=== PATIENT | female | born 1970 | race Caucasian/White ===

== ENCOUNTER → 2016-05-22 | Outpatient (CLI) | payer OTHER ==
[2016-05-22 11:01] LABS: Basophils % (A) 1 %; CH 29.8; CHCM 33.5; Eosinophils # (A) 0.1 k/uL (0-0.7); Eosinophils % (A) 3 %; HCT 41.5 % (34.0-46.0); HDW 2.62; HGB 13.5 gm/dL (11.4-16.0); Luc % (Auto) 2; Lymphocytes # (A) 1.4 k/uL (1.0-4.8); Lymphocytes % (A) 31 %; MCH 28.9 pg (25.0-35.0); MCHC 32.5 g/dL (31.0-37.0); Monocytes # (A) 0.3 k/uL (0-1.0); Monocytes % (A) 7 %; Neutrophils # (A) 2.6 k/uL (1.3-7.7); Neutrophils % (A) 57 %; RBC 4.66 m/uL (3.80-5.40); RDW 13.4 % (11.5-15.5); WBC 4.4 k/uL (3.8-10.6); WBC (Perox) 4.47
[2016-05-22 11:08] LABS: Anion Gap 11 mmol/L; Blood Urea Nitrogen 10 mg/dL (7-17); Calcium 9.2 mg/dL (8.4-10.2); Carbon Dioxide 26 mmol/L (22-30); Chloride 105 mmol/L (98-107); Glucose 100 mg/dL (74-99); Non-African American GFR(MDRD) >60 (>60 ml/min/1.73 sqM); Potassium 4.1 mmol/L (3.5-5.1); Sodium 142 mmol/L (137-145)
== END | disposition home or self-care (01) ==
LOC: LABWHC1 10:10
PROVIDERS: ATTEND Obstetrics & Gynecology
DX: Z01.812 Encounter for preprocedural laboratory examination (principal)
CPT/HCPCS: 36415; 80048; 85025

== ENCOUNTER 2016-05-28 06:03 | Observation (INO) | payer OTHER ==
[~2016-05-28 06:03] MED LIST: DEXAMETHASONE SOD PHOSPHATE 10 MG/ML 1 ML VIAL IV ONE; MIDAZOLAM 2 MG/2 ML VIAL IV PRN; ONDANSETRON 4 MG/2 ML VIAL IVP ONE; SCOPOLAMINE 1.5MG/72HR PATCH TRANSDERM ONE; ceFAZolin 2 GM in SODIUM CHLORIDE 0.9% 100 ML IVPB ONE
[2016-05-28] MEDS ORDERED: LIDOCAINE 1% 20 ML VIAL (10MG/ML) FOR IV START INTRADERMA ONE ×2 (06:45→06:49)
[2016-05-28] MEDS: LACTATED RINGERS 1,000 ML IV SCH ×4 (06:47→12:22)
[2016-05-28] MEDS ORDERED: METOCLOPRAMIDE 5 MG/ML 2 ML VIAL IVP ONE (07:00)
[2016-05-28] MEDS ORDERED: MIDAZOLAM 2 MG/2 ML VIAL IVP ONE (07:34)
--- NOTE | 2016-05-28 07:44 | P.HPOB ---
History of Present Illness H&P Date: 05/28/16 Chief Complaint: Dysfunctional uterine bleeding Elaine is a 45-year-old female who has dysfunctional uterine bleeding. She bleeds basally 7 days each cycle is getting heavier and she underwent a ablation procedure a few years ago and has not had resolution of symptoms. In fact symptoms are significantly worse her last month or so. It is so bad that she is now unable to function as well as she would like and she is requesting hysterectomy for rule out resolution of symptoms. Risks and benefits/ alternatives to robotic-assisted laparoscopic hysterectomy reviewed with the patient in detail and did include but were not limited to damage to bladder, bowel, vascular injuries, nerve injuries, ureteral injuries, bleeding and infection. All questions were answered for her prior to proceeding to the operating room. Past Medical History Past Medical History: No Reported History History of Any Multi-Drug Resistant Organisms: None Reported Past Surgical History: Tubal Ligation Additional Past Surgical History / Comment(s): D & C. BOTH FEET PLANTAR FASCITIS/SPURS. LEFT EYE (LASY EYE). LAPROSCOPY (R/O ENDOMETROSIS). Past Anesthesia/Blood Transfusion Reactions: Motion Sickness, Postoperative Nausea & Vomiting (PONV) Past Psychological History: Anxiety, Depression Additional Psychological History / Comment(s): GENERALIZED ANXIETY DISORDER. Smoking Status: Never smoker Past Alcohol Use History: Rare Past Drug Use History: None Reported - Past Family History Sister(s) Family Medical History: Deep Vein Thrombosis (DVT) Medications and Allergies Allergies Allergy/AdvReac Type Severity Reaction Status Date / Time No Known Allergies Allergy Verified 05/22/16 14:13 Exam Osteopathic Statement: *. No significant issues noted on an osteopathic structural exam other than those noted in the History and Physical/Consult. - Vital Signs Vital signs: Vital Signs Temp Pulse Resp BP Pulse Ox 05/28/16 06:28 98.1 F 74 18 170/76 96 - OBG Physical Exam Breast: both: normal (no masses) Abdomen: bowel sounds normal, no diffuse tenderness, no bruit present, no guarding noted, no hepatomegaly, no splenomegaly, no mass Vulva: both: normal Vagina: normal moisture, no discharge Cervix: no lesion, no discharge Uterus: normal size, normal contour Adnexa: both: normal Anus/Rectum: normal perianal skin, no rectal mass, no hemorrhoids, heme negative
[2016-05-28] MEDS ORDERED: KETOROLAC 30 MG/ML 1 ML VIAL ONE (07:51)
[2016-05-28] MEDS ORDERED: LIDOCAINE 1% INJ 10MG/ML (20 ML MDV) ONE (07:51)
[2016-05-28] MEDS ORDERED: fentaNYL (PF) 50 MCG/ML 2 ML AMP ONE (07:51)
[2016-05-28] MEDS ORDERED: SUCCINYLCHOLINE CHLORIDE 100 MG/5 ML SYR IV ONE (07:51)
[2016-05-28] MEDS ORDERED: GLYCOPYRROLATE 0.2 MG/ML 2 ML VIAL ONE (07:51)
[2016-05-28] MEDS ORDERED: ROCURONIUM BROMIDE 10 MG/ML 10 ML VIAL IV ONE (07:51)
[2016-05-28] MEDS ORDERED: PROPOFOL 10 MG/ML 20 ML VIAL IV ONE (07:51)
[2016-05-28] MEDS ORDERED: NEOSTIGMINE 1 MG/ML 10 ML VIAL ONE (07:51)
[2016-05-28] MEDS ORDERED: BUPIVACAINE (PF) 0.25% 30 ML VIAL SQ ONE (08:28)
[2016-05-28] MEDS ORDERED: ONDANSETRON 4 MG/2 ML VIAL IVP PRN (09:10)
[2016-05-28] MEDS ORDERED: SIMETHICONE 80 MG CHEWABLE PO PRN (09:10)
[2016-05-28] MEDS ORDERED: Acetaminophen-Codeine 300-30mg TAB PO PRN ×2 (09:10)
[2016-05-28] MEDS ORDERED: diphenhydrAMINE 50 MG/ML 1 ML VIAL IVP PRN (09:10)
--- NOTE | 2016-05-28 09:18 | P.OP ---
Date of Procedure: 05/28/16 Preoperative Diagnosis: : Dysfunctional uterine bleeding and Failed ablation Postoperative Diagnosis: Same with left ovarian hemorrhagic cyst Procedure(s) Performed: Robotic-assisted laparoscopic hysterectomy with left ovarian cystectomy Anesthesia: SIGIFREDO Surgeon: Adam Albrecht Functional Analyst #1: Marita Tapia Estimated Blood Loss (ml): 15 IV fluids (ml): 500 Urine output (ml): 150 Pathology: other (Uterus and cervix) Condition: stable Disposition: floor Operative Findings: Normal uterus and tubes. Left hemorrhagic cyst which was removed. Incidental finding of an abdominal wall hernia above the camera incision Description of Procedure: Patient was taken to the operating suite where a general anesthetic was found to be adequate. She was prepped and draped in the normal sterile fashion and placed in dorsal lithotomy position. Initially a weighted speculum was inserted in the vagina into lip cervix with was identified and grasped with a single-tooth tenaculum. Cervix was then dilated and the uterus was sounded to 8 cm. Cup size was then measured to 3.5 cm and a Giselle manipulator was inserted without difficulty with sutures placed at 3 and 9 for assistance in removal. Tenaculum and speculum was were then removed and a El catheter was placed. Gloves were then changed and attention was turned to the abdominal portion of the procedure where by approximately 2 mL of quarter percent Marcaine were injected periumbilically. Through this injected anesthetic a 5 mm skin incision was made and through this incision under direct visualization with an optical trocar and sleeve the camera was inserted. Once this was accomplished gas was allowed to fully insufflate the abdomen and patient was placed in steep Trendelenburg position. 2 lateral ports were then placed approximately 10 cm from the umbilicus and a fourth port and sleeve was inserted through 1 cm incision between the left lateral and the medial port. Camera port was then exchanged for a robotic port and the robot was brought in and docked. Once fully docked I did break scrub and go to the console using [place] grasper and a Metzenbaum scissor initially we did visualize a hernia above the bellybutton incision this is an incidental finding. Next we noted a proxy 3 cm left hemorrhagic cyst which was excised without difficulty. Once this was accomplished uterus was elevated tipped to the right-hand side first the left utero-ovarian ligament was identified cauterized and cut then the fallopian tube was cauterized and cut broad ligament tissues to the Remley were then cauterized and cut roundly was then cauterized and cut and sterilization of left sided vast suture was then performed. Once accomplished left vasculature was cauterized bladder flap was elevated undermined with Metzenbaum and incised with scissors across face of the uterus this allowed for the bladder to the only dissected out of the operative field. Once this side was completed in a similar fashion the right side was developed. Once fully accomplished anterior colpotomy was made and the cup was followed around counterclockwise fashion cheating head when needed to maintain excellent hemostasis. Once is accomplished and uterus was free from the vaginal cuff the uterus is brought into the vagina to maintain pneumoperitoneum. Once excellent hemostasis was obtained 2-0 V lock suture was used to close the incision in a running fashion. Once this was accomplished pelvis was thoroughly irrigated seeing no bleeding from any of the pedicles left ovary also looked good following cystectomy. Incidents removed and gas was allowed t this expel from the abdomen. 5 deep breaths were provided during this process. Once this accomplished ports and sleeves were removed and Dr. Tapia close the incision subcuticularly. At the same time I did do a cystoscopy and both ureteral jets were were noted. All instruments were then removed. Sponge, lap, needle counts were all correct 2. And patient was taken to the recovery room in stable and satisfactory condition.
[2016-05-28] MEDS: KETOROLAC 30 MG/ML 1 ML VIAL IVP PRN ×3 (09:50→22:10)
[2016-05-28] MEDS: HYDROmorphone 1 MG/ML 1 ML SYRINGE IVP PRN ×2 (09:56→10:02)
[2016-05-28 12:48] VITALS: BMI 35.8
[2016-05-28 13:02] LABS: Basophils % (A) 0 %; CH 29.9; CHCM 33.6; Eosinophils % (A) 0 %; HCT 41.2 % (34.0-46.0); HDW 2.59; HGB 13.4 gm/dL (11.4-16.0); Luc # (Auto) 0.11; Luc % (Auto) 1; Lymphocytes # (A) 0.4 k/uL (1.0-4.8); Lymphocytes % (A) 5 %; MCH 29.1 pg (25.0-35.0); MCHC 32.6 g/dL (31.0-37.0); MCV 89.2 fL (80.0-100.0); Mean Platelet Volume 7.3; Monocytes # (A) 0.2 k/uL (0-1.0); Monocytes % (A) 2 %; Neutrophils # (A) 8.1 k/uL (1.3-7.7); Neutrophils % (A) 92 %; RBC 4.61 m/uL (3.80-5.40); RDW 13.3 % (11.5-15.5); WBC 8.8 k/uL (3.8-10.6); WBC (Perox) 9.32
[2016-05-28 13:20] LABS: ALT 36 U/L (9-52); AST 23 U/L (14-36); Alkaline Phosphatase 67 U/L (38-126); Anion Gap 12 mmol/L; Blood Urea Nitrogen 9 mg/dL (7-17); Calcium 9.2 mg/dL (8.4-10.2); Carbon Dioxide 26 mmol/L (22-30); Chloride 103 mmol/L (98-107); Glucose 111 mg/dL (74-99); Non-African American GFR(MDRD) >60 (>60 ml/min/1.73 sqM); Potassium 4.2 mmol/L (3.5-5.1); Sodium 141 mmol/L (137-145); Total Bilirubin 0.4 mg/dL (0.2-1.3); Total Protein 7.2 g/dL (6.3-8.2)
[2016-05-28] MEDS ORDERED: HYDROcodone/APAP 5-325MG 1 EACH TAB PO PRN (13:29)
[2016-05-28] MEDS: HYDROcodone/APAP 5-325MG 1 EACH TAB PO PRN ×2 (13:38→22:11)
--- NOTE | 2016-05-28 14:34 | P.CONS ---
History of Present Illness - Reason for Consult Consult date: 05/28/16 Medical management Requesting physician: Adam Albrecht - Chief Complaint Dysfunctional uterine bleeding status post hysterectomy - History of Present Illness This is a 45-year-old female, a patient of Dr. Canchola. She has known past medical history of dysfunctional uterine bleeding with previous ablation a few years ago with no improvement in symptoms. Also has a history of anxiety and depression. Patient's uterine bleeding was getting worse and having heavier bleeding. Therefore she underwent hysterectomy with a left ovarian cystectomy today with Dr. Albrecht for dysfunctional uterine bleeding and left ovarian hemorrhagic cyst. We were consulted for medical management and hypertension. Patient's blood pressure on admission was 170/76. Blood pressure currently is 148/85. Patient does report having elevated blood pressures at times with headache. Was told to be on a low-sodium diet. She has never been placed on medications. She does have a family history with a father and sister who have high blood pressure. Patient reports when she sees her PCP her blood pressures are usually in the 130s to 140s. She reports that she is very anxious prior to this surgery also has stress at home favorite uncle who just . She had to miss the to have this procedure today. Patient feels that her stress is likely contributing to her symptoms. And is requesting not to be on medication if she doesn't have to. Patient reports having an elevated blood pressure on a previous eye surgery. Again she is very anxious prior to the procedure. And then blood pressures improved. Patient also is having some abdominal discomfort from surgery. She denies any chest pain, shortness of breath, nausea or vomiting. No headache currently. Denies any vision changes. Denies any nausea or vomiting. Denies any difficulty urinating. Had bowel movement prior to surgery. Review of Systems Head normocephalic Neck supple Lungs clear to auscultation bilaterally no wheezing or crackles Heart regular rate and rhythm S1-S2, no rub or gallop Abdomen is soft tender incision sites. Hypoactive bowel sounds. Extremities no edema Neuro alert and orientated to 3 Past Medical History Past Medical History: No Reported History History of Any Multi-Drug Resistant Organisms: None Reported Past Surgical History: Tubal Ligation Additional Past Surgical History / Comment(s): D & C. BOTH FEET PLANTAR FASCITIS/SPURS. LEFT EYE (LASY EYE). LAPROSCOPY (R/O ENDOMETROSIS). Past Anesthesia/Blood Transfusion Reactions: Motion Sickness, Postoperative Nausea & Vomiting (PONV) Past Psychological History: Anxiety, Depression Additional Psychological History / Comment(s): GENERALIZED ANXIETY DISORDER. Smoking Status: Never smoker Past Alcohol Use History: Rare Past Drug Use History: None Reported - Past Family History Sister(s) Family Medical History: Deep Vein Thrombosis (DVT) Additional Family Medical History / Comment(s): sister and father with high blood pressure. Mother who of an [place] in her 50s Medications and Allergies Allergies Allergy/AdvReac Type Severity Reaction Status Date / Time acetaminophen AdvReac Nausea & Verified 05/28/16 12:27 [From Tylenol-Codeine #3] Vomiting codeine AdvReac Nausea & Verified 05/28/16 12:27 [From Tylenol-Codeine #3] Vomiting Physical Exam Vitals: Vital Signs Temp Pulse Pulse Pulse Resp BP BP 05/28/16 12:10 89 18 148/85 05/28/16 11:43 71 18 151/84 05/28/16 11:25 74 18 152/78 05/28/16 11:10 67 16 155/73 05/28/16 10:55 63 16 148/74 05/28/16 10:40 96.9 F L 67 18 154/83 05/28/16 10:15 62 18 155/74 05/28/16 10:00 65 18 162/77 05/28/16 09:46 75 18 165/82 05/28/16 09:24 74 18 167/72 05/28/16 06:28 98.1 F 74 18 170/76 Pulse Ox 05/28/16 12:10 97 05/28/16 11:43 99 05/28/16 11:25 99 05/28/16 11:10 98 05/28/16 10:55 96 05/28/16 10:40 98 05/28/16 10:15 100 05/28/16 10:00 99 05/28/16 09:46 99 05/28/16 09:24 100 05/28/16 06:28 96 Intake and Output 05/27/16 05/28/16 05/28/16 22:59 06:59 14:59 Intake Total 700 1100 Output Total 515 Balance 700 585 Intake: IV 700 1100 Output: Urine 500 Estimated Blood Loss 15 Other: Voiding Method Indwelling Catheter Results CBC & Chem 7: 05/28/16 12:52 05/28/16 12:52 Assessment and Plan Plan: 1. Dysfunctional uterine bleeding failing ablation with a left ovarian hemorrhagic cyst status post hysterectomy and left ovarian cystectomy. Patient postop day #0. Continue pain control and postoperative orders per DIFFUSION FURNACE OPERATOR service 2. Hypertension not on medications at home. Patient did have a blood pressure of 170/76 now down at 148/85. Continue to monitor blood pressures. Possibly related to patient's anxiety disorder and pain. Recommend low sodium diet and weight loss through diet and exercise when tolerated. Monitor BP off of medications for now. 3. Generalized anxiety disorder 4. Check routine labs CBC and CMP DVT prophylaxis SCDs Thank you for this consultation. We will continue to follow along with you. Time with Patient: Greater than 30 (Greater than 50% of the total time spent in counseling and coordination of care.I performed an examination of the patient and discussed their management with the physician Personnel Placement Specialist. I have reviewed the Physician Personnel Placement Specialist's notes and agree with the documented findings and plan of care)
[2016-05-28] MEDS: SENNOSIDES-DOCUSATE SODIUM 1 EACH TAB PO SCH (22:10)
[2016-05-29] MEDS: HYDROcodone/APAP 5-325MG 1 EACH TAB PO PRN ×2 (02:58→09:00)
[2016-05-29] MEDS: KETOROLAC 30 MG/ML 1 ML VIAL IVP PRN (06:18)
[2016-05-29 06:27] LABS: Basophils % (A) 0 %; CHCM 33.6; Eosinophils # (A) 0.1 k/uL (0-0.7); Eosinophils % (A) 1 %; HCT 37.8 % (34.0-46.0); HDW 2.57; HGB 12.3 gm/dL (11.4-16.0); Luc % (Auto) 2; Lymphocytes # (A) 2.1 k/uL (1.0-4.8); Lymphocytes % (A) 26 %; MCH 29.3 pg (25.0-35.0); MCHC 32.7 g/dL (31.0-37.0); MCV 89.7 fL (80.0-100.0); Mean Platelet Volume 6.8; Monocytes # (A) 0.5 k/uL (0-1.0); Monocytes % (A) 6 %; Neutrophils # (A) 5.4 k/uL (1.3-7.7); Neutrophils % (A) 65 %; RBC 4.21 m/uL (3.80-5.40); RDW 13.5 % (11.5-15.5); WBC 8.3 k/uL (3.8-10.6); WBC (Perox) 9.29
[2016-05-29 06:44] LABS: ALT 34 U/L (9-52); AST 17 U/L (14-36); Alkaline Phosphatase 56 U/L (38-126); Anion Gap 8 mmol/L; Blood Urea Nitrogen 10 mg/dL (7-17); Carbon Dioxide 28 mmol/L (22-30); Chloride 104 mmol/L (98-107); Glucose 101 mg/dL (74-99); Non-African American GFR(MDRD) >60 (>60 ml/min/1.73 sqM); Sodium 140 mmol/L (137-145); Total Bilirubin 0.4 mg/dL (0.2-1.3); Total Protein 6.5 g/dL (6.3-8.2)
[2016-05-29] MEDS: SENNOSIDES-DOCUSATE SODIUM 1 EACH TAB PO SCH (08:03)
[2016-05-29 08:09] VITALS: BP 156/95; PULSE 59; RESP 20; TEMP 97.3
--- NOTE | 2016-05-29 11:22 | P.DS ---
Providers Date of admission: 05/28/16 22:56 Expected date of discharge: 05/29/16 Attending physician: Adam Albrecht Consults: 05/28/16 11:54 Consult Physician Routine Consulting Provider: Tommy Martines Consult Reason/Comments: med management Do you want consulting provider notified?: Yes Primary care physician: Ivone Tracy [facility] Course: Care is doing very well post op day 1. She is ambulating, voiding, and she is tolerating her diet. She voices no complaints other than mild pain. Her vital signs are stable and she is afebrile. Her heart is regular, lungs clear, extremities without pain. Her abdomen is soft she has positive bowel sounds her incisions are intact. We'll plan discharge home today. She is trying follow up with her PCP about her blood pressures within the next week or 2 area prescription for Ruthven and Motrin have been provided. Discharge instructions were thoroughly reviewed with both she and her and all questions are answered for her prior to being discharged. She is again stable for discharge at this time. Patient Condition at Discharge: Good Plan - Discharge Summary New Discharge Prescriptions: HYDROcodone/APAP 5-325MG [Ruthven 5-325] 1 tab PO Q4HR PRN #30 tab PRN Reason: Pain Ibuprofen [Motrin] 600 mg PO Q6HR PRN #30 tab PRN Reason: Pain Discharge Medication List Ibuprofen [Motrin] 600 mg PO Q6HR PRN #30 tab 05/20/14 [Rx] HYDROcodone/APAP 5-325MG [Ruthven 5-325] 1 tab PO Q4HR PRN #30 tab 05/29/16 [Rx] Ibuprofen [Motrin] 600 mg PO Q6HR PRN #30 tab 05/29/16 [Rx] Follow up Appointment(s)/Referral(s): Adam Albrecht DO [Doctor of Osteopathic Medicine] - 1 Week Activity/Diet/Wound Care/Special Instructions: pelvic rest, no heavy lifting. limit stairs and driving. call for any high temps, heavy bleeding, severe pain
--- NOTE | 2016-05-29 11:24 | P.PN ---
Subjective Patient blood pressure remained elevated throughout her hospitalization with systolic in the 150s and 160s Objective - Vital Signs Vital signs: Vital Signs Temp 97.3 F L 05/29/16 08:08 Pulse 59 L 05/29/16 08:09 Resp 20 05/29/16 08:08 BP 156/95 05/29/16 08:08 Pulse Ox 95 05/29/16 08:08 Intake & Output 05/28/16 05/29/16 05/29/16 18:59 06:59 18:59 Intake Total 1100 Output Total 845 600 Balance 255 -600 Weight 100.698 kg Intake: IV 1100 Output: Urine 830 600 Estimated Blood Loss 15 Other: Voiding Method Toilet # Voids 1 1 - Exam General: The patient is awake and alert, in no distress Eye: there is normal conjunctiva bilaterally. Neck: The neck is supple, there is no JVD. Cardiovascular: Normal S1-S2, no S3-S4, no murmurs. Respiratory: Lungs clear to auscultation bilaterally Gastrointestinal: Abdomen is soft, nontender Musculoskeletal: There is no pedal edema. Neurological:. Speech is normal. Skin: Skin is warm and dry - Labs CBC & Chem 7: 05/29/16 06:13 05/29/16 06:13 Labs: Abnormal Lab Results - Last 24 Hours (Table) 05/28/16 05/28/16 05/29/16 Range/Units 12:52 12:52 06:13 Neutrophils # 8.1 H (1.3-7.7) k/uL Lymphocytes # 0.4 L (1.0-4.8) k/uL Glucose 111 H 101 H (74-99) mg/dL Assessment and Plan Plan: 1. Dysfunctional uterine bleeding failing ablation with a left ovarian hemorrhagic cyst status post hysterectomy and left ovarian cystectomy. Patient postop day #0. Continue pain control and postoperative orders per GEOLOGICAL SURVEY FIELD ASSISTANT service 2. Hypertension not on medications at home. Will be started on amlodipine 5 mg daily. Continue her efforts regarding weight loss and limiting added salt to her diet. 3. Generalized anxiety disorder Follow-up with primary care physician for further blood pressure management next week
== END 2016-05-29 12:14 | disposition home or self-care (01) ==
LOC: OR 06:03 → 6PED 09:24 → OR 22:56
PROVIDERS: ADMIT Obstetrics & Gynecology; ATTEND Obstetrics & Gynecology
DX: N93.8 Other specified abnormal uterine and vaginal bleeding (principal); N83.202 Unspecified ovarian cyst, left side; K43.9 Ventral hernia without obstruction or gangrene; I10 Essential (primary) hypertension; Z88.6 Allergy status to analgesic agent; Z88.5 Allergy status to narcotic agent; F41.1 Generalized anxiety disorder
CPT/HCPCS: 58550; 58662; S2900; 80053; 81025; 85025; 86850; 86900; 86901; 88307; 96374

== ENCOUNTER 2021-02-28 10:47 | Emergency (ER) | payer OTHER ==
[2021-02-28] MEDS ORDERED: ACETAMINOPHEN TAB 500 MG TAB PO STA (10:54)
[2021-02-28] MEDS ORDERED: IBUPROFEN 800 MG TAB PO STA (11:14)
[2021-02-28] MEDS ORDERED: SODIUM CHLORIDE 0.9% 50 ML IVPB ONE (12:00)
[2021-02-28] MEDS ORDERED: CASIRIVIMAB/IMDEVIMAB (EUA) 1,200 MG in SODIUM CHLORIDE 0.9% 100 ML IVPB ONE (12:15)
[2021-02-28 12:24] VITALS: RESP 18
--- NOTE | 2021-02-28 13:12 | ED ---
General Adult HPI - General Chief complaint: Upper Respiratory Infection Stated complaint: Infusion Time Seen by Provider: 02/28/21 10:54 Source: patient, RN notes reviewed, old records reviewed Mode of arrival: ambulatory Limitations: no limitations - History of Present Illness Initial comments: Patient is a 50-year-old female who presents emergency Department requesting a monoclonal antibody therapy. She tested positive for Covid on February 25 and began having symptoms on February 23. She is requesting monoclonal antibody therapy. She is endorsing shortness of breath, cough. Endorses occasional fevers. She is taking Tylenol Motrin for fevers. She denies any abdominal pain, nausea, vomiting. Endorses lack of appetite. Denies any diarrhea. Denies any lightheadedness, numbness, weakness. She is no other acute complaints at this time. She is seeking monoclonal antibody therapy. Patient was not vaccinated. - Related Data Home Medications Medication Instructions Recorded Confirmed Chlorthalidone 25 mg PO DAILY 02/28/21 02/28/21 Methylphenidate HCl [Ritalin] 15 mg PO DAILY PRN 02/28/21 02/28/21 Pantoprazole Sodium [Protonix] 40 mg PO DAILY 02/28/21 02/28/21 hydrALAZINE HCL 10 mg PO BID 02/28/21 02/28/21 Previous Rx's Medication Instructions Recorded Albuterol Inhaler [Ventolin Hfa 1 puff INHALATION RT-QID #8 gm 02/28/21 Inhaler] Allergies Allergy/AdvReac Type Severity Reaction Status Date / Time codeine AdvReac Nausea & Verified 02/28/21 13:18 [From Tylenol-Codeine #3] Vomiting Review of Systems ROS Statement: Those systems with pertinent positive or pertinent negative responses have been documented in the HPI. Review of Systems: CONST: Denies fever EYES: Denies blurry vision ENT: Denies nasal congestion C/V: Denies Chest pain RESP: Endorses shortness of breath is worse with exertion. GI: Denies abdominal pain : Denies dysuria SKIN: Denies rash. MSK: Denies joint pain. NEURO: Denies headache ROS Other: All systems not noted in ROS Statement are negative. Past Medical History Past Medical History: Hypertension Additional Past Medical History / Comment(s): transient HTN being monitored. pt is trying weigth loss and diet. has low sodium and low fat info at home. History of Any Multi-Drug Resistant Organisms: None Reported Past Surgical History: Tubal Ligation Additional Past Surgical History / Comment(s): D & C. BOTH FEET PLANTAR FASCITIS/SPURS. LEFT EYE (LASY EYE). LAPROSCOPY (R/O ENDOMETROSIS). Past Anesthesia/Blood Transfusion Reactions: Motion Sickness, Postoperative Nausea & Vomiting (PONV) Past Psychological History: Anxiety, Depression Smoking Status: Never smoker Past Alcohol Use History: Rare Past Drug Use History: None Reported - Past Family History Sister(s) Family Medical History: Deep Vein Thrombosis (DVT) Additional Family Medical History / Comment(s): sister and father with high blood pressure. Mother who of an [place] in her 50s Father Family Medical History: Cancer Additional Family Medical History / Comment(s): FATHER General Exam - General Exam Comments Initial Comments: General: Appears in no acute distress. Patient is mildly febrile HEAD: Normal with no signs of head trauma. EYES: PERRLA, EOMI, conjunctiva normal, no discharge. ENT: Hearing grossly intact, normal oropharynx. RESPIRATORY: Clear breath sounds bilaterally. No wheezes, rales, or rhonchi. Ambulatory pulse ox is within normal limits. C/V: Regular rate and rhythm. S1 and S2 auscultated, no edema, peripheral pulses 2+ and intact throughout ABD: Abd is soft, nontender, nondistended EXT: Normal range of motion, no obvious deformity SKIN: No rashes or lesions observed on exposed skin. NEURO: Alert and oriented 4. Limitations: no limitations Course Vital Signs 02/28/21 02/28/21 02/28/21 10:49 12:23 13:04 Temperature 100.8 F H 99.5 F Pulse Rate 96 80 78 Respiratory 20 18 18 Rate Blood Pressure 102/70 113/63 108/56 O2 Sat by Pulse 95 94 L 94 L Oximetry 02/28/21 13:47 Temperature 98.4 F Pulse Rate 83 Respiratory 18 Rate Blood Pressure 133/57 O2 Sat by Pulse 94 L Oximetry Medical Decision Making - Medical Decision Making Based on the patient's presentation and physical exam, I believe she is likely experiencing sequelae from her active COVID-19 infection. Pulse ox is normal. I do not believe that she wears laboratory studies or imaging at this time. For the patient's fever she received Tylenol Motrin. We discussed the monoclonal antibody therapy and she consented to it. Patient tolerated the therapy well. No ALLERGIC reaction. Patient was discharged home afterwards. I will provide the patient with a prescription for albuterol. I instructed the patient to follow up with their PCP in the next 3 days. I explained that the patient should return to the emergency department if they experience any worsening symptoms. Strict return precautions were discussed with the patient. The patient expressed understanding of these instructions. I answered all questions that the patient had. The patient was discharged home in fair condition with their prescriptions and follow up information. Disposition Clinical Impression: COVID-19 virus infection Disposition: HOME SELF-CARE Condition: Fair Instructions (If sedation given, give patient instructions): Coronavirus Disease 2019 (COVID-19) Prescriptions: Albuterol Inhaler [Ventolin Hfa Inhaler] 1 puff INHALATION RT-QID #8 gm Is patient prescribed a controlled substance at d/c from ED?: No Referrals: Ivone Tracy MD [Primary Care Provider] - 1-2 days
[2021-02-28 13:48] VITALS: BP 133/57; PULSE 83; TEMP 98.4
== END 2021-02-28 13:54 | disposition home or self-care (01) ==
LOC: EC 10:47
DX: U07.1 COVID-19 (principal); I10 Essential (primary) hypertension; Z88.5 Allergy status to narcotic agent; Z79.899 Other long term (current) drug therapy
CPT/HCPCS: 99284 ×2; 96360; M0243; Q0243

== ENCOUNTER → 2022-11-06 | Outpatient (CLI) | payer OTHER ==
[2022-11-06 16:36] LABS: Basophils # (A) 0.06 X 10*3/uL (0.00-0.10); Basophils % (A) 1.1 %; Eosinophils # (A) 0.25 X 10*3/uL (0.04-0.35); Eosinophils % (A) 4.5 %; HCT 44.2 % (37.2-46.3); HGB 14.7 d/dL (12.0-15.0); Lymphocytes # (A) 2.23 X 10*3/uL (0.90-5.00); Lymphocytes % (A) 40.2 %; MCH 28.5 pg (27.0-32.0); MCHC 33.3 d/dL (32.0-37.0); MCV 85.8 FL (80.0-97.0); Mean Platelet Volume 11.1 FL (9.5-12.2); Monocytes # (A) 0.47 X 10*3/uL (0.20-1.00); Monocytes % (A) 8.5 %; NRBC Per 100 WBC 0 X 10*3/uL (0.00-0.01); Neutrophils # (A) 2.53 X 10*3/uL (1.80-7.70); Neutrophils % (A) 45.5 %; Platelet Count 265 X 10*3/uL (140-440); RBC 5.15 X 10*6/uL (4.10-5.20); RDW 13.6 % (11.5-14.5); WBC 5.55 X 10*3/uL (4.50-10.00)
[2022-11-06 16:55] LABS: BUN/Creat Ratio 14.89 Ratio (12.00-20.00); Blood Urea Nitrogen 13.4 mg/dL (9.0-27.0); Calcium 10.1 mg/dL (8.7-10.3); Carbon Dioxide 28.9 mmol/L (21.6-31.8); Chloride 102 mmol/L (96-109); Glucose 118 mg/dL (70-110); Potassium 3.9 mmol/L (3.5-5.5); Sodium 141 mmol/L (135-145)
== END | disposition home or self-care (01) ==
LOC: LABPAT 08:36
PROVIDERS: ATTEND Orthopaedic Surgery Hand Surgery
DX: Z01.812 Encounter for preprocedural laboratory examination (principal); G56.01 Carpal tunnel syndrome, right upper limb; I45.10 Unspecified right bundle-branch block; R94.31 Abnormal electrocardiogram [ECG] [EKG]
CPT/HCPCS: 80048; 85025; 93005